=== PATIENT | male | born 1960 | race Caucasian/White ===

== ENCOUNTER 2020-02-06 10:40 | Emergency (ER) | payer OTHER ==
[~2020-02-06] VITALS: Ht 175.3 cm; Wt 98.7 kg
--- NOTE | 2020-02-06 10:45 | NUR ---
Pt called to triage, in rr.
[2020-02-06] MEDS ORDERED: HYDROcodone/APAP 5/325 TABLET ONE (11:03)
--- NOTE | 2020-02-06 11:15 | NUR ---
TASK RN NOTE: PT MEDICATED PER EMAR, EDUCATED THAT HE MAY NOT DRIVE TODAY, PT STATES HE HAS A RIDE HOME. PT ATTACHED TO BP AND SPO2 MONITORS. CALL LIGHT IN REACH. MRI SCREEN COMPLETED. PT AWAITING MRI AND DISPO.
[2020-02-06 11:17] VITALS: BP 177/105
--- NOTE | 2020-02-06 14:05 | NUR ---
PT DEMONSTRATED PROPER USE OF CRUTCHES.
--- NOTE | 2020-02-06 14:05 | NUR ---
REPORT RECEIVED FROM TAN CORTES.
--- NOTE | 2020-02-06 14:22 | NUR ---
Patient given discharge instructions and they have confirmed that they understand the instructions. Patient ambulatory with steady gait using crutches.
== END 2020-02-06 14:24 | disposition home or self-care (01) ==
LOC: ED 11:31
DX: S83.212A Bucket-handle tear of medial meniscus, current injury, left knee, initial encounter (principal); S83.512A Sprain of anterior cruciate ligament of left knee, initial encounter; X50.1XXA Overexertion from prolonged static or awkward postures, initial encounter; Y93.89 Activity, other specified; Y92.89 Other specified places as the place of occurrence of the external cause; Y99.0 Civilian activity done for income or pay
CPT/HCPCS: 29505; 99283; 99284